=== PATIENT | female | born 1950 | race Caucasian/White ===

== ENCOUNTER 2022-05-11 07:04 | Day surgery (SDC) | payer MEDICARE, OTHER ==
[~2022-05-11 07:04] MED LIST: Acetaminophen 325 MG Tab PO PRN; Acetaminophen/Codeine 300-30 MG Tab PO PRN; Cataract Ophth Solution EYERT ONE; Moxifloxacin 0.5% Ophth Soln 3 ML Bottle EYERT ONE; Ondansetron 4 MG/2 ML SDV IVPUSH PRN; Phenylephrine 10% Ophth Soln 5 ML Bot EYERT ONE; Povidone-Iodine 5% Sterile Ophth Soln 30 ML Bottle EYERT ONE; Proparacaine 0.5% Ophth Soln 15 ML Bottle EYERT ONE; Sodium Chloride 0.9% 10 ML Syringe FLUSH PRN; Timolol Maleate 0.5% Ophth Soln 5 ML Bottle EYERT ONE; Tobramycin 0.3% Ophth Drops 5 ML Bottle EYELF SCH; Tropicamide 1% Ophth Soln 15 ML Bottle EYERT ONE
[2022-05-11] MEDS ORDERED: Midazolam 1 MG/ML 2 ML SDV IV ONE (07:05)
[2022-05-11] MEDS ORDERED: Dexamethasone 4 MG/ML SDV IV ONE (07:05)
[2022-05-11] MEDS ORDERED: Povidone-Iodine 5% Sterile Ophth Soln 30 ML Bottle EYERT ONE (08:13)
[2022-05-11] MEDS ORDERED: Tetracaine HCl/PF 0.5% 4 ML Bottle EYERT ONE (08:13)
[2022-05-11] MEDS ORDERED: Apraclonidine 0.5% Ophth Soln 5 ML Bot EYERT ONE (08:14)
[2022-05-11] MEDS ORDERED: Diclofenac Sodium 0.1% Ophth Soln 5 ML Bottle EYERT ONE (08:14)
[2022-05-11] MEDS ORDERED: Lidocaine 1% 30 ML SDV ONE (08:14)
[2022-05-11] MEDS ORDERED: Dexamethasone/Neomycin/Polymyxin B Ophth Oint 3.5 GM Tube EYERT ONE (08:14)
[2022-05-11] MEDS ORDERED: Vancomycin 500 MG SDV EYERT ONE (08:15)
[2022-05-11] MEDS ORDERED: Chondroitin Sulfate/Hyaluronate Sodium Ophth Inj 0.5 ML Syringe IOCULAR ONE (08:15)
[2022-05-11] MEDS ORDERED: Balanced Salt Solution Ophth Irrig 500 ML Bottle IOCULAR ONE (08:15)
== END 2022-05-11 09:25 | disposition home or self-care (01) ==
LOC: DL.SDS 07:04
PROVIDERS: ATTEND Ophthalmology
DX: H25.811 Combined forms of age-related cataract, right eye (principal); H46.9 Unspecified optic neuritis; T79.6XXA Traumatic ischemia of muscle, initial encounter; F41.9 Anxiety disorder, unspecified; G35 Multiple sclerosis; M85.80 Other specified disorders of bone density and structure, unspecified site; Z79.899 Other long term (current) drug therapy; Z79.83 Long term (current) use of bisphosphonates; Z01.812 Encounter for preprocedural laboratory examination; Z20.822 Contact with and (suspected) exposure to COVID-19
CPT/HCPCS: 66984; A9270; J1100; J2250; J3370; J3490; V2632; 00142

== ENCOUNTER 2022-05-25 06:29 | Day surgery (SDC) | payer MEDICARE, OTHER ==
[2022-05-25] MEDS ORDERED: Timolol Maleate 0.5% Ophth Soln 5 ML Bottle EYELF ONE (06:30)
[2022-05-25] MEDS ORDERED: Moxifloxacin 0.5% Ophth Soln 3 ML Bottle EYELF ONE (06:30)
[2022-05-25] MEDS ORDERED: Dexamethasone 4 MG/ML SDV IV ONE (06:30)
[2022-05-25] MEDS ORDERED: Proparacaine 0.5% Ophth Soln 15 ML Bottle EYELF ONE (06:30)
[2022-05-25] MEDS ORDERED: Phenylephrine 10% Ophth Soln 5 ML Bot EYELF ONE (06:30)
[2022-05-25] MEDS ORDERED: Tobramycin 0.3% Ophth Drops 5 ML Bottle EYELF SCH (06:30)
[2022-05-25] MEDS ORDERED: Povidone-Iodine 5% Sterile Ophth Soln 30 ML Bottle EYELF ONE ×2 (06:30→08:01)
[2022-05-25] MEDS ORDERED: Midazolam 1 MG/ML 2 ML SDV IV ONE (06:30)
[2022-05-25] MEDS ORDERED: Ondansetron 4 MG/2 ML SDV IVPUSH PRN (06:30)
[2022-05-25] MEDS ORDERED: Tropicamide 1% Ophth Soln 15 ML Bottle EYELF ONE (06:30)
[2022-05-25] MEDS ORDERED: Sodium Chloride 0.9% 10 ML Syringe FLUSH PRN (06:30)
[2022-05-25] MEDS ORDERED: Cataract Ophth Solution EYELF ONE (06:30)
[2022-05-25] MEDS ORDERED: Sodium Chloride 0.9% 10 ML Syringe IV ONE (06:30)
[2022-05-25] MEDS ORDERED: Acetaminophen 325 MG Tab PO PRN (06:30)
[2022-05-25] MEDS ORDERED: Acetaminophen/Codeine 300-30 MG Tab PO PRN (06:30)
[2022-05-25] MEDS ORDERED: Tetracaine HCl/PF 0.5% 4 ML Bottle EYELF ONE (08:00)
[2022-05-25] MEDS ORDERED: Apraclonidine 0.5% Ophth Soln 5 ML Bot EYELF ONE (08:02)
[2022-05-25] MEDS ORDERED: Diclofenac Sodium 0.1% Ophth Soln 5 ML Bottle EYELF ONE (08:03)
[2022-05-25] MEDS ORDERED: Dexamethasone/Neomycin/Polymyxin B Ophth Oint 3.5 GM Tube EYELF ONE (08:03)
[2022-05-25] MEDS ORDERED: Balanced Salt Solution Ophth Irrig 500 ML Bottle IOCULAR ONE (08:04)
[2022-05-25] MEDS ORDERED: Lidocaine 1% 5 ML VIAL ONE (08:04)
[2022-05-25] MEDS ORDERED: Vancomycin 500 MG SDV EYELF ONE (08:05)
[2022-05-25] MEDS ORDERED: Chondroitin Sulfate/Hyaluronate Sodium Ophth Inj 0.75 ML Syringe EYELF ONE (08:06)
== END 2022-05-25 09:10 | disposition home or self-care (01) ==
LOC: DL.SDS 06:29
PROVIDERS: ATTEND Ophthalmology
DX: H25.812 Combined forms of age-related cataract, left eye (principal); G35 Multiple sclerosis; M85.80 Other specified disorders of bone density and structure, unspecified site; F41.9 Anxiety disorder, unspecified; E66.9 Obesity, unspecified; Z68.37 Body mass index [BMI] 37.0-37.9, adult; Z87.81 Personal history of (healed) traumatic fracture; Z90.49 Acquired absence of other specified parts of digestive tract; Z79.811 Long term (current) use of aromatase inhibitors; Z79.83 Long term (current) use of bisphosphonates; Z79.899 Other long term (current) drug therapy
CPT/HCPCS: 00142; 66984; A9270; J1100; J2250; J3370; J3490; V2632

== ENCOUNTER 2022-08-07 13:18 | Observation (INO) | payer MEDICARE, OTHER ==
[2022-08-07 14:29] LABS: ANION GAP 12.7 mEq/L (7-13)
[2022-08-07] MEDS ORDERED: cefTRIAXone 2 GM in Sodium Chloride 0.9% 100 ML IV ONE (16:01)
[2022-08-07] MEDS ORDERED: Sodium Chloride 0.9% 1,000 ML IV ONE (16:02)
[2022-08-07] MEDS: Sodium Chloride 0.9% 10 ML Syringe FLUSH PRN ×2 (16:31→22:48)
[2022-08-07 16:56] LABS: RESPIRATORY SYNCYTIAL VIR NAA NEGATIVE (NEGATIVE)
[2022-08-07 16:57] LABS: CORONAVIRUS COVID-19 NAA POSITIVE (NEGATIVE)
[2022-08-07] MEDS ORDERED: oxyCODONE 5 MG Tab PO PRN (19:12)
[2022-08-07] MEDS ORDERED: Acetaminophen 325 MG Tab PO PRN (19:12)
[2022-08-07] MEDS ORDERED: Ondansetron 4 MG/2 ML SDV IVPUSH PRN (19:12)
[2022-08-07] MEDS ORDERED: Morphine 2 MG/ML SYRINGE IVPUSH PRN (19:12)
[2022-08-07] MEDS ORDERED: Albuterol/Ipratropium 3.0-0.5 MG/3 ML Neb Soln NEB PRN (19:12)
[2022-08-07] MEDS ORDERED: Sodium Chloride 0.9% 1,000 ML IV SCH (19:15)
[2022-08-07] MEDS ORDERED: hydrALAZINE 20 MG/ML SDV IVPUSH PRN (19:20)
[2022-08-07] MEDS ORDERED: Non-Formulary Medication 1 Each (Alendronate Sodium [Fosamax] 70 MG Tablet) PO SCH (19:30)
[2022-08-07] MEDS ORDERED: Sertraline 50 MG Tab PO SCH (21:00)
[2022-08-07] MEDS ORDERED: Heparin Sodium 5,000 Units/ML Vial SUBCUT SCH (22:00)
[2022-08-08] MEDS ORDERED: Cholecalciferol (Vitamin D3) 25 MCG Tab PO SCH (09:00)
[2022-08-08] MEDS ORDERED: cefTRIAXone 2 GM in Sodium Chloride 0.9% 100 ML IV SCH (09:00)
[2022-08-08] MEDS ORDERED: Multivitamin Tab PO SCH (09:00)
[2022-08-09] MEDS ORDERED: Loperamide 2 MG Cap ONE (23:32)
[2022-08-10] MEDS ORDERED: Potassium Chloride 10 MEQ Tab.ER ONE (09:39)
[2022-08-10] MEDS ORDERED: Loperamide 2 MG Cap ONE (12:39)
[2022-08-12] MEDS ORDERED: Enoxaparin 40 MG/0.4 ML Syringe ONE (09:30)
[2022-08-12] MEDS ORDERED: Famotidine 20 MG Tab ONE (09:31)
[2022-08-13] MEDS ORDERED: Enoxaparin 40 MG/0.4 ML Syringe ONE (09:05)
[2022-08-13] MEDS ORDERED: Famotidine 20 MG Tab ONE (09:06)
[2022-08-13] MEDS ORDERED: Acetaminophen 325 MG Tab ONE (09:07)
[2022-08-15] MEDS ORDERED: Cholecalciferol (Vitamin D3) 10 MCG Tab ONE (09:31)
[2022-08-15] MEDS ORDERED: Famotidine 20 MG Tab ONE ×2 (09:31→21:25)
[2022-08-15] MEDS ORDERED: Enoxaparin 40 MG/0.4 ML Syringe ONE (09:32)
[2022-08-15] MEDS ORDERED: Multivitamin Tab ONE (09:32)
[2022-08-15] MEDS ORDERED: Melatonin 3 MG Tab ONE (21:26)
[2022-08-16] MEDS ORDERED: Enoxaparin 40 MG/0.4 ML Syringe ONE (08:02)
[2022-08-16] MEDS ORDERED: Acetaminophen 325 MG Tab ONE ×2 (08:02→19:40)
[2022-08-16] MEDS ORDERED: Famotidine 20 MG Tab ONE ×2 (08:02→19:41)
[2022-08-16] MEDS ORDERED: Melatonin 3 MG Tab ONE (19:41)
[2022-08-17] MEDS ORDERED: Famotidine 20 MG Tab ONE ×2 (09:28→20:56)
[2022-08-17] MEDS ORDERED: Acetaminophen 325 MG Tab ONE ×2 (09:28→20:56)
[2022-08-17] MEDS ORDERED: Enoxaparin 40 MG/0.4 ML Syringe ONE (09:29)
[2022-08-17] MEDS ORDERED: Melatonin 3 MG Tab ONE (20:57)
[2022-08-18] MEDS ORDERED: Famotidine 20 MG Tab ONE (08:07)
[2022-08-18] MEDS ORDERED: Enoxaparin 40 MG/0.4 ML Syringe ONE (08:08)
[2022-08-18] MEDS ORDERED: Acetaminophen 325 MG Tab ONE (08:09)
[2022-09-02 16:04] LABS: ANION GAP 11.6 mEq/L (7-13)
[2022-09-02 16:06] LABS: HEMOGLOBIN A1C 6.6 % (<5.7)
[2022-09-05 11:25] LABS: ANION GAP 11.5 mEq/L (7-13)
[2022-09-05 13:43] LABS: ANION GAP 10.4 mEq/L (7-13)
== END 2022-08-10 12:15 ==
LOC: DL.ED 13:18 → DL.MS 17:11 → DL.ZCENSUS 08-08 13:08
PROVIDERS: ADMIT Internal Medicine; ATTEND Internal Medicine
DX: U07.1 COVID-19 (principal); R41.82 Altered mental status, unspecified; E86.0 Dehydration; G35 Multiple sclerosis; N39.0 Urinary tract infection, site not specified; N18.9 Chronic kidney disease, unspecified; F32.A Depression, unspecified; F41.9 Anxiety disorder, unspecified; E66.9 Obesity, unspecified; Z68.30 Body mass index [BMI] 30.0-30.9, adult; Z79.899 Other long term (current) drug therapy; Z91.048 Other nonmedicinal substance allergy status; Z90.49 Acquired absence of other specified parts of digestive tract
CPT/HCPCS: 0241U; 36415; 70450; 70553; 71045; 80053; 81001; 82728; 83036; 83605; 83735; 84443; 85025; 85651; 86140; 87040; 87086; 96361; 96365; 96366; 96372; 96376; 97110-GO; 97161-GP; 97165-GO; 97530-GP; 97535-GO; 99284; 99285-25; A9270-GY; G0378; J0696; J1644; J3490; J7030

== ENCOUNTER 2022-08-11 15:43 | Inpatient (IN) | payer MEDICARE, OTHER ==
[2022-09-05 15:57] LABS: ANION GAP 14.5 mEq/L (7-13); CHLORIDE,CL 101 mmol/L (98-107); ESTIMATED GFR 61 mL/min (>=60); SODIUM,NA 141 mmol/L (136-145)
[2022-09-05 16:01] LABS: AMPHETAMINES,URINE NEGATIVE (NEGATIVE); BARBITURATES,URINE NEGATIVE (NEGATIVE); BENZODIAZEPINE,URINE NEGATIVE (NEGATIVE); MDMA (ECSTASY), URINE NEGATIVE (NEGATIVE); METHADONE,URINE NEGATIVE (NEGATIVE); METHAMPHETAMINES,URINE NEGATIVE (NEGATIVE); OPIATES,URINE NEGATIVE (NEGATIVE); OXYCODONE,URINE NEGATIVE (NEGATIVE); PHENCYCLIDINE,URINE NEGATIVE (NEGATIVE); TCA,URINE NEGATIVE (NEGATIVE)
[2022-09-06 13:54] LABS: ANION GAP 11.7 mEq/L (7-13); CHLORIDE,CL 103 mmol/L (98-107); ESTIMATED GFR 74 mL/min (>=60); SODIUM,NA 138 mmol/L (136-145)
== END 2022-08-18 10:00 | DRG 69 ==
LOC: DL.ED 15:43 → DL.ZCENSUS 21:05
PROVIDERS: ADMIT Internal Medicine; ATTEND Internal Medicine
DX: G45.9 Transient cerebral ischemic attack, unspecified (principal); N39.0 Urinary tract infection, site not specified; G35 Multiple sclerosis; G30.9 Alzheimer's disease, unspecified; F02.80 Dementia in other diseases classified elsewhere, unspecified severity, without behavioral disturbance, psychotic disturbance, mood disturbance, and anxiety; G20 Parkinson's disease; I10 Essential (primary) hypertension; E78.5 Hyperlipidemia, unspecified; Z86.16 Personal history of COVID-19
CPT/HCPCS: 36415; 70450; 71045; 80053; 80305; 81001; 82140; 83605; 83735; 83880; 84443; 84484; 85025; C1758; 80048; 80061; 82607; 85027; 96125-GN; 97161-GP; 97165-GO; 97530-GO; 99284